=== PATIENT | female | born 1990 | race Caucasian/White ===

== ENCOUNTER → 2017-09-26 | Outpatient (CLI) | payer MEDICAID | LOC: CIMAGING 13:05 | PROVIDERS: ATTEND Family Medicine | DX: R10.9 Unspecified abdominal pain (principal); R30.0 Dysuria | CPT/HCPCS: 74018-PO ==

== ENCOUNTER → 2017-10-03 | Outpatient (CLI) | payer MEDICAID | LOC: CIMAGING 10:13 | PROVIDERS: ATTEND Family Medicine | DX: K59.00 Constipation, unspecified (principal) | CPT/HCPCS: 74176-PO ==

== ENCOUNTER → 2018-10-26 | Outpatient (CLI) | payer MEDICAID | LOC: FIMAGING 10:11 | PROVIDERS: ATTEND Obstetrics & Gynecology | DX: O99.333 Smoking (tobacco) complicating pregnancy, third trimester (principal); Z3A.36 36 weeks gestation of pregnancy ==